=== PATIENT | female | born 1995 | race Caucasian/White ===

== ENCOUNTER 2023-04-07 01:14 | Emergency (ER) | payer SELFPAY ==
[~2023-04-07] VITALS: Ht 170.2 cm; Wt 84.1 kg
[~2023-04-07 01:14] MED LIST: CRUTCHES MC
[2023-04-07 01:16] VITALS: TEMP 98.2
[2023-04-07 02:30] VITALS: BP 133/85; PULSE 68
== END 2023-04-07 02:30 | disposition home or self-care (01) ==
LOC: COL.ER 01:14
DX: T76.21XA Adult sexual abuse, suspected, initial encounter (principal); S10.93XA Contusion of unspecified part of neck, initial encounter; Y92.009 Unspecified place in unspecified non-institutional (private) residence as the place of occurrence of the external cause
CPT/HCPCS: Q9967

== ENCOUNTER 2023-04-22 12:27 | Emergency (ER) | payer SELFPAY ==
[~2023-04-22] VITALS: Ht 170.2 cm; Wt 81.8 kg
[2023-04-22 15:07] LABS: MONOSCREEN NEGATIVE
[2023-04-22] MEDS ORDERED: Ketorolac 15 MG/ML VIAL IV ONE (16:00)
[2023-04-22] MEDS ORDERED: NS 1,000 ML IV ONE (16:00)
[2023-04-22 16:27] LABS: COLLECTION METHOD CLEAN CATCH
[2023-04-22 16:48] LABS: BASO % 0.1 % (0.0-2.0); EOS % 0.1 % (0.0-4.0); GRAN % 82.3 % (42.2-75.2); HEMATOCRIT 37.5 % (37.0-47.0); HEMOGLOBIN 12.4 g/dl (12.5-16.0); LYMPH # 1.6 K/mm3 (1.2-3.4); MEAN CELL VOLUME 93 fl (80.0-100.0); MEAN CORPUSCULAR HEMOGLOBIN 31 pg (27-31); MEAN CORPUSCULAR HGB CONC 33 g/dl (33.0-37.0); MEAN PLATELET VOLUME 9.4 fl (7.4-10.4); MONO # 1.1 K/mm3 (0.1-0.6); MONO % 6.9 % (1.7-9.3); PLATELET COUNT 382 K/mm3 (130-400); RED BLOOD COUNT 4.03 M/mm3 (4.10-5.30); REDCELL DISTRIBUTION WIDTH-CV 12.3 % (11.5-14.5)
[2023-04-22 16:52] LABS: URINE APPEARANCE Cloudy (CLEAR/HAZY); URINE COLOR Yellow (YELLOW); URINE GLUCOSE Negative (NEGATIVE); URINE KETONE 1+ (NEGATIVE); URINE PROTEIN(semi-quant) 2+ (NEGATIVE)
[2023-04-22 16:53] LABS: URINE BLOOD 1+ (NEGATIVE); URINE NITRATE Positive (NEGATIVE)
[2023-04-22 16:54] LABS: URINE BACTERIA Many /hpf (NONE SEEN)
[2023-04-22 17:08] LABS: ALBUMIN 3.5 gm/dL (3.5-5.0); BILIRUBIN,TOTAL 0.4 mg/dL (0.2-1.2); CALCIUM 9.6 mg/dL (8.4-10.2); CREATININE, serum 0.75 mg/dL (0.57-1.11); POTASSIUM 3.2 mmol/L (3.5-4.5); TOTAL PROTEIN 7.9 gm/dL (6.2-8.1)
[2023-04-22 17:09] LABS: C-REACTIVE PROTEIN 37.12 mg/dL (0.00-0.50)
[2023-04-22] MEDS ORDERED: cefTRIAXone 1 G in Water For Injection,Sterile 10 ML IV ONE (18:00)
[2023-04-22] MEDS ORDERED: Acetaminophen 500 MG TAB PO ONE (18:00)
[2023-04-22] MEDS ORDERED: ZOFRAN ODT4 MG PO (18:51)
[2023-04-22] MEDS ORDERED: CEFTIN500 MG PO (18:51)
[2023-04-22 18:56] VITALS: BP 121/75; PULSE 98; TEMP 99.2
== END 2023-04-22 19:31 | disposition home or self-care (01) ==
LOC: COL.ER 12:27
PROVIDERS: Emergency Medicine; Nurse Practitioner
DX: N39.0 Urinary tract infection, site not specified (principal); Z88.0 Allergy status to penicillin
CPT/HCPCS: J0696; J1885; J7030